=== PATIENT | male | born 2000 | race Caucasian/White ===

== ENCOUNTER 2023-03-01 01:48 | Emergency (ER) | payer SELFPAY ==
[~2023-03-01] VITALS: Ht 185.4 cm; Wt 113.0 kg
[2023-03-01 02:03] VITALS: BP 137/67
== END 2023-03-01 06:15 | disposition home or self-care (01) ==
LOC: ER 01:48
DX: T51.0X1A Toxic effect of ethanol, accidental (unintentional), initial encounter (principal); X58.XXXA Exposure to other specified factors, initial encounter
CPT/HCPCS: 99283